=== PATIENT | male | born 1925 | race Caucasian/White ===

== ENCOUNTER 2016-07-21 08:55 | Day surgery (SDC) | payer MEDICARE, BC ==
[~2016-07-21] VITALS: Ht 172.7 cm; Wt 73.6 kg
[2016-07-21] MEDS ORDERED: ASPIRIN 32325 MG/TAB PO (09:18)
[2016-07-21] MEDS ORDERED: ZETIA 10MG TAB10 MG PO (09:18)
[2016-07-21] MEDS ORDERED: LASIX 20MG TABL20 MG PO (09:18)
[2016-07-21] MEDS ORDERED: MAG-OX 400400 MG/TAB PO (09:19)
[2016-07-21] MEDS ORDERED: NITROSTAT0.4 MG/TAB SL (09:20)
[2016-07-21] MEDS ORDERED: COUMADIN 22.5 MG/TAB PO (09:21)
[2016-07-21] MEDS ORDERED: COUMADIN 3MG3 MG/TAB PO (09:23)
[2016-07-21 09:25] VITALS: BP 141/90; PULSE 101; TEMP 97.5
[2016-07-21 09:25] LABS: HEMATOCRIT 41.4 % (42.0-52.0); HEMOGLOBIN 13.5 g/dl (13.5-18.0); MEAN CELL VOLUME 92 fl (80.0-100.0); MEAN CORPUSCULAR HEMOGLOBIN 30 pg (27.0-31.0); MEAN CORPUSCULAR HGB CONC 33 g/dl (33.0-37.0); MEAN PLATELET VOLUME 9.5 fl (7.4-10.4); PLATELET COUNT 186 K/mm3 (130-400); RED BLOOD COUNT 4.51 M/mm3 (4.20-5.60); REDCELL DISTRIBUTION WIDTH-CV 14.7 % (11.5-14.5)
[2016-07-21 09:29] LABS: INR 1.4 (0.8-3.0); PROTHROMBIN TIME 15.1 SECONDS (9.7-12.8)
[2016-07-21 09:33] LABS: CREATININE, serum 1.27 mg/dL (0.66-1.25); POTASSIUM 4.3 mmol/L (3.4-5.0)
[2016-07-21 09:51] LABS: ALBUMIN 3.6 gm/dL (3.5-5.0); TOTAL PROTEIN 7.2 gm/dL (6.4-8.2)
[2016-07-21 10:07] LABS: BILIRUBIN,DIRECT 0.6 mg/dL (0.0-0.4)
[2016-07-21 10:10] LABS: BILIRUBIN,TOTAL 1.1 mg/dL (0.0-1.0)
[2016-07-21 10:55] VITALS: BP 120/91; PULSE 88
[2016-07-21 11:10] VITALS: BP 122/90; PULSE 58
[2016-07-21 11:25] VITALS: BP 134/94; PULSE 83
[2016-07-21 11:40] VITALS: BP 154/100; PULSE 54
[2016-12-12] MEDS ORDERED: CRESTOR5 MG PO (00:34)
== END 2016-07-21 12:46 | disposition home or self-care (01) ==
LOC: COL.CAR 08:55
PROVIDERS: Internal Medicine Cardiovascular Disease
DX: I08.3 Combined rheumatic disorders of mitral, aortic and tricuspid valves (principal); I48.2 Chronic atrial fibrillation; I11.0 Hypertensive heart disease with heart failure; I50.9 Heart failure, unspecified; I25.10 Atherosclerotic heart disease of native coronary artery without angina pectoris; E78.5 Hyperlipidemia, unspecified; Z79.82 Long term (current) use of aspirin; Z79.899 Other long term (current) drug therapy; Z79.01 Long term (current) use of anticoagulants; Z87.891 Personal history of nicotine dependence; Z85.46 Personal history of malignant neoplasm of prostate
CPT/HCPCS: J0330; J2704; J7030